=== PATIENT | male | born 1970 | race Caucasian/White ===

== ENCOUNTER 2019-12-25 21:54 | Emergency (ER) | payer OTHER ==
[~2019-12-25] VITALS: Ht 188 cm; Wt 143.1 kg
[2019-12-25 22:30] VITALS: BP 155/95
[2019-12-25] MEDS ORDERED: LIDOCAINE 2% 20 ML VIAL. ONE (22:42)
[2019-12-25] MEDS ORDERED: AMOX1TAB61 PO (23:10)
--- NOTE | 2019-12-25 23:10 | PHYS DOC ---
Past Medical History Past Medical History: Diabetes-Type II, High Cholesterol, Hypertension, Other Additional Past Medical Histor: PULMONARY EMBOLISM Past Surgical History: No Surgical History Smoking Status: Never Smoker Alcohol Use: None Adult General Chief Complaint Chief Complaint: ANIMAL BITE HPI HPI Patient is a 49 year old right handed male who presents with animal bite to L wrist. The patient also has bite to right knee, and abrasion to L upper arm. The patient was at home and his Mastiff tried to give him a hug, he pushed the dog away and the dog bite him on wrist. He rates his pain as 3/10. Review of Systems Review of Systems Constitutional: Denies fever or chills [] Eyes: Denies change in visual acuity, redness, or eye pain [] HENT: Denies nasal congestion or sore throat [] Respiratory: Denies cough or shortness of breath [] Cardiovascular: No additional information not addressed in HPI [] GI: Denies abdominal pain, nausea, vomiting, bloody stools or diarrhea [] : Denies dysuria or hematuria [] Musculoskeletal: Denies back pain or joint pain [] Integument: Reports animal bite to L wrist. Neurologic: Denies headache, focal weakness or sensory changes [] Endocrine: Denies polyuria or polydipsia [] Complete systems were reviewed and found to be within normal limits, except as documented in this note. Current Medications Current Medications Current Medications Medications (Trade) Dose Ordered Sig/Yajaira Start Time Stop Time Status Last Admin Dose Admin Diphtheria/ Tetanus/Acell Pertussis (Boostrix) 0.5 ml ONCE ONCE 12/25/19 23:15 12/25/19 23:16 DC 12/26/19 00:08 0.5 ML Lidocaine HCl 20 ml STK-MED ONCE 12/25/19 22:42 12/25/19 22:42 DC Allergies Allergies Allergies Coded Allergies Type Severity Reaction Last Updated Verified No Known Drug Allergies 12/25/19 No Physical Exam Physical Exam Constitutional: Well developed, well nourished, no acute distress, non-toxic appearance. [] HENT: Normocephalic, atraumatic, bilateral external ears normal, oropharynx moist, no oral exudates, nose normal. [] Eyes: PERRLA, EOMI, conjunctiva normal, no discharge. [] Skin: 2.5 cm laceration to L wrist with tendon sheath visible, abrasions to L upper arm, small cut to Right knee. Back: No tenderness, no CVA tenderness. [] Extremities: Patient has reduced sensation to 2nd-Fifth digit. He is unable to extend or close 5th digit. The proximal area of 5th digit is edematous and is unstable. Neurologic: Alert and oriented X 3, normal motor function, normal sensory function, no focal deficits noted. [] Psychologic: Affect normal, judgement normal, mood normal. [] Current Patient Data Vital Signs Vital Signs Date Time Temp Pulse Resp B/P (MAP) Pulse Ox O2 Delivery O2 Flow Rate FiO2 12/25/19 22:30 98.4 96 20 155/95 (115) 96 Room Air 98.4 EKG EKG [] Radiology/Procedures Radiology/Procedures Indication: Laceration Procedure: The patient was placed in the appropriate position and anesthesia around the lac was 2% lidocaine. The area was then cleaned with iodine and 210 mL of NS. The laceration was loosely approximated with 3, 4-0 nylon sutures. Total repaired wound length: 2.5 cm. Other Items: [OTHER ITEMS] The patient tolerated the procedure well. Complications: None. Course & Med Decision Making Course & Med Decision Making Pertinent Labs and Imaging studies reviewed. (See chart for details) Will get xray and discuss with [facility] to get appointment for hand surgeon follow up. Will repair laceration and put on Augmentin. X-ray shows displaced, 5th proximal oblique fracture. The wound is open and has puncture wounds. X-ray shows foreign body to puncture wound on lateral hand. Cleaned puncture wound out with iodine and 210 mL of NS. Discussed case with [facility] transfer line. Trauma Surgeon Dr. Padilla accepts transfer. Dragon Disclaimer Dragon Disclaimer This electronic medical record was generated, in whole or in part, using a voice recognition dictation system. Departure Departure Impression: Primary Impression: Animal bite Additional Impressions: Laceration Proximal phalanx fracture of finger Disposition: 05 TRANSFER OTHER ([facility]) Condition: STABLE Referrals: JOSE E OROZCO PA-C (PCP) Scripts Amoxicillin/Potassium Clav (AUGMENTIN 875-125 TABLET) 1 Each Tablet 1 TAB PO BID for 7 Days, #14 TAB 0 Refills Prov: CARDENAS,ALMAZ SOTO 12/25/19 Problem Qualifiers Additional Impressions: Proximal phalanx fracture of finger Encounter type: initial encounter Finger: little finger Fracture type: open Fracture alignment: displaced Laterality: left Qualified Codes: S62.617B - Displaced fracture of proximal phalanx of left little finger, initial encounter for open fracture ALMAZ CARDENAS APRN Dec 25, 2019 23:10
[2019-12-25] MEDS ORDERED: DIPHTH,PERTUSS(ACELL),TET TOX 0.5 ML DISP.SYRIN. VAX IM ONE (23:15)
[2019-12-26] MEDS ORDERED: LIDOCAINE 2% 20 ML VIAL. IJ ONE (00:30)
[2019-12-26] MEDS ORDERED: cefTRIAXone IM 1 GM VIAL IM ONE (00:30)
--- NOTE | 2019-12-26 00:45 | RAD ---
EXAM: 1. LEFT HAND 3 VIEWS. 2. LEFT WRIST 3 VIEWS. HISTORY: Animal bite. COMPARISON: None. FINDINGS: There is a comminuted, likely open fracture of the fifth proximal phalanx. There is greater than one shaft width dorsal displacement and mild lateral displacement of the distal fracture fragment, with overriding by 6 mm. Soft tissue gas is noted along the volar aspect of the wrist. No fractures are appreciated within the wrist. Joint spaces and alignment are maintained. No fractures are identified throughout remainder of the hand. 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 A small metallic foreign body projects within the ulnar soft tissues of the wrist measuring 2 mm. IMPRESSION: 1. Comminuted, dorsally displaced and overriding fracture of the fifth proximal phalanx. Correlate to exclude an open injury. 2. Soft tissue injury at the wrist. Electronically signed by: Nikki Mckeon MD (12/26/2019 12:42 AM) [id number]
== END 2019-12-26 01:10 | disposition short-term general hospital (02) ==
LOC: ER 21:54
DX: S62.617A Displaced fracture of proximal phalanx of left little finger, initial encounter for closed fracture (principal); S61.512A Laceration without foreign body of left wrist, initial encounter; S81.011A Laceration without foreign body, right knee, initial encounter; S40.812A Abrasion of left upper arm, initial encounter; Z86.711 Personal history of pulmonary embolism; Y93.89 Activity, other specified; Y92.89 Other specified places as the place of occurrence of the external cause; Y99.8 Other external cause status; W54.0XXA Bitten by dog, initial encounter; E78.00 Pure hypercholesterolemia, unspecified; E11.9 Type 2 diabetes mellitus without complications; I10 Essential (primary) hypertension
CPT/HCPCS: 12001; 73110; 73130; 90471; 90715; 96372; 99285; J0696; J2001